=== PATIENT | female | born 1990 | race American Indian/Alaskan Native ===

== ENCOUNTER 2017-02-13 21:34 | Emergency (ER) | payer MEDICAID ==
[2017-02-13 22:46] VITALS: BP 112/72
[2017-02-14 00:51] LABS: Bilirubin,Urine NEG (Negative); Blood,Urine NEG (Negative); Ketones,Urine NEG (Negative); Leukocyte Esterase,Urine SM (Negative); Mucus,Urine FEW /HPF; Nitrite,Urine NEG (Negative); Protein,Urine <15 mg/dL mg/dL (Negative); Urobilinogen,Urine < 2.0 mg/dL (<2.0)
== END 2017-02-14 04:00 | disposition left against medical advice (07) ==
LOC: ED 21:34
DX: N89.8 Other specified noninflammatory disorders of vagina (principal); Z53.21 Procedure and treatment not carried out due to patient leaving prior to being seen by health care provider
CPT/HCPCS: 81001; 81025

== ENCOUNTER 2019-04-16 07:09 | Emergency (ER) | payer MEDICAID, OTHER ==
[2019-04-16 07:26] VITALS: BP 117/70
--- NOTE | 2019-04-16 09:11 | XRay Report ---
LUMBOSACRAL SPINE, 3 VIEWS INDICATION: low back pain. COMPARISON: None. IMPRESSION: Normal alignment. No significant discogenic DJD or facet arthropathy. No acute osseous or soft tissue abnormality. Signer Name: Grabiel Christianson Jr, MD Signed: 04/16/2019 9:06 AM Workstation Name: [id number]
[2019-04-16] MEDS ORDERED: ULTRAM PO ONE (09:27)
[2019-04-16] MEDS ORDERED: IBUPROFEN PO ONE (09:27)
[2019-04-16] MEDS ORDERED: DELTASONE PO ONE (09:28)
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
== END 2019-04-16 10:15 | disposition home or self-care (01) ==
LOC: ED 07:09
DX: S30.0XXA Contusion of lower back and pelvis, initial encounter (principal); X58.XXXA Exposure to other specified factors, initial encounter; Y93.89 Activity, other specified; Y92.89 Other specified places as the place of occurrence of the external cause; Y99.8 Other external cause status
CPT/HCPCS: 72100; 99283; J7512

== ENCOUNTER 2019-04-21 06:55 | Emergency (ER) | payer OTHER ==
[2019-04-21 07:26] VITALS: BP 110/74
--- NOTE | 2019-04-21 08:23 | Emergency Department Report ---
ED Female HPI - General Chief complaint: Urogenital-Female Stated complaint: VAGINAL PAIN,DISCHARGE, HARD TO USE IT Time Seen by Provider: 04/21/19 08:06 Source: patient Mode of arrival: Ambulatory Limitations: No Limitations - History of Present Illness Initial comments: This is a 29-year-old -[place] female who presents to the emergency room with vaginal irritation, pruritus, dysuria, and vaginal discharge for one week. Last menstrual period 03/22/2019, A1 . Patient denies trying anything over the counter. She reports some urinary frequency that is intermittent. She denies back pain, fever, chills, nausea, or vomiting. MD Complaint: vaginal discharge, pelvic pain, possible STD Onset/Timin -: week(s) Location: labia, suprapubic Radiation: non-radiating Severity: moderate Severity scale (0 -10): 5 Quality: cramping Consistency: intermittent Improves with: none Worsens with: urination Are you Now?: No Last Menstrual Period: 03/22/19 EDC: 12/27/19 Associated Symptoms: vaginal discharge, abdominal pain, dysuria. denies: nausea/vomiting, fever/chills, hematuria, rash, seizure - Related Data Sexually active: Yes : 2 Para: 1 A: 1 () Previous Rx's Medication Instructions Recorded Last Taken Type Ibuprofen [Motrin] 800 mg PO Q8HR PRN #30 tablet 04/16/19 Unknown Rx predniSONE [Deltasone] 20 mg PO DAILY #5 tablet 04/16/19 Unknown Rx Fluconazole [Diflucan TAB] 150 mg PO ONCE #1 tablet 04/21/19 Unknown Rx metroNIDAZOLE [Flagyl TAB] 500 mg PO Q12HR #14 tab 04/21/19 Unknown Rx Allergies Allergy/AdvReac Type Severity Reaction Status Date / Time No Known Allergies Allergy Unverified 08/15/14 16:54 ED Review of Systems ROS: Stated complaint: VAGINAL PAIN,DISCHARGE, HARD TO USE IT Other details as noted in HPI Constitutional: denies: chills, fever Respiratory: denies: cough, shortness of breath, wheezing Cardiovascular: denies: chest pain, palpitations Gastrointestinal: abdominal pain. denies: nausea, diarrhea Genitourinary: dysuria, frequency, discharge. denies: urgency Musculoskeletal: denies: back pain, joint swelling, arthralgia Skin: denies: rash, lesions Neurological: denies: headache, weakness, paresthesias Psychiatric: denies: anxiety, depression ED Past Medical Hx - Past Medical History Previous Medical History?: No - Surgical History Past Surgical History?: No - Social History Smoking Status: Never Smoker Substance Use Type: None - Medications Home Medications: Home Medications Medication Instructions Recorded Confirmed Last Taken Type Ibuprofen [Motrin] 800 mg PO Q8HR PRN #30 tablet 04/16/19 Unknown Rx predniSONE [Deltasone] 20 mg PO DAILY #5 tablet 04/16/19 Unknown Rx Fluconazole [Diflucan TAB] 150 mg PO ONCE #1 tablet 04/21/19 Unknown Rx metroNIDAZOLE [Flagyl TAB] 500 mg PO Q12HR #14 tab 04/21/19 Unknown Rx ED Physical Exam - General Limitations: No Limitations General appearance: alert, in no apparent distress, obese - Respiratory Respiratory exam: Present: normal lung sounds bilaterally. Absent: respiratory distress - Cardiovascular Cardiovascular Exam: Present: regular rate, normal rhythm. Absent: systolic murmur, diastolic murmur, rubs, gallop - GI/Abdominal GI/Abdominal exam: Present: soft, normal bowel sounds. Absent: distended, tenderness, guarding, rebound, rigid - External exam: Present: normal external exam Speculum exam: Present: vaginal discharge (malodorous yellowish). Absent: c ervical discharge, vaginal bleeding, foreign body, tissue, laceration Bi-manual exam: Present: normal bi-manual exam - Back Exam Back exam: Absent: CVA tenderness (R), CVA tenderness (L) - Neurological Exam Neurological exam: Present: alert, oriented X3 - Psychiatric Psychiatric exam: Present: normal affect, normal mood - Skin Skin exam: Present: warm, dry, intact, normal color. Absent: rash ED Course Vital Signs 04/21/19 07:24 Temperature 98.4 F Pulse Rate 83 Respiratory 16 Rate Blood Pressure 110/74 O2 Sat by Pulse 99 Oximetry ED Medical Decision Making - Medical Decision Making Patient was examined by me. Vitals are stable and in no acute distress. Obtained urinalysis, urine test, wet prep, gonorrhea and chlamydia. Pelvic exam performed. Wet prep positive for clue cells, negative Trichomonas and yeast. All other Labs unremarkable. Gonorrhea and chlamydia pending. St art metronidazole and diflucan for acute Cervicitis. Discharged home in stable condition. Discussed prevention options. F/U with PCP or Health Department. Critical care attestation.: If time is entered above; I have spent that time in minutes in the direct care of this critically ill patient, excluding procedure time. ED Disposition Clinical Impression: Vaginal discharge, Bacterial vaginitis, Acute cervicitis Disposition: TO HOME OR SELFCARE Is pt being admited?: No Condition: Stable Instructions: Bacterial Vaginosis (ED), Cervicitis (ED) Additional Instructions: Avoid drinking alcohol while taking antibiotics and for 24 hours after completion. Continue safe sexual intercourse. Follow up with Primary Care Provider or health department. Prescriptions: Fluconazole [Diflucan TAB] 150 mg PO ONCE #1 tablet metroNIDAZOLE [Flagyl TAB] 500 mg PO Q12HR #14 tab Referrals: [facility] [Outside] - 3-5 Days [facility] [Outside] - 3-5 Days [facility] [Outside] - 3-5 Days Forms: STI Treatment and Prevention Time of Disposition: 10:11
[2019-04-21 08:33] LABS: HCG Qualitative,Urine Negative (Negative)
[2019-04-21 08:39] LABS: Bacteria,Urine 1+ /HPF (Negative); Bilirubin,Urine NEG (Negative); Blood,Urine NEG (Negative); Color,Urine Yellow (Yellow); Mucus,Urine FEW /HPF; Protein,Urine <15 mg/dL mg/dL (Negative); Urobilinogen,Urine < 2.0 mg/dL (<2.0)
== END 2019-04-21 10:20 | disposition home or self-care (01) ==
LOC: ED 06:55
DX: N76.0 Acute vaginitis (principal); N72 Inflammatory disease of cervix uteri; Z79.899 Other long term (current) drug therapy
CPT/HCPCS: 81001; 81025; 87210; 87591

== ENCOUNTER 2020-03-25 02:32 | Emergency (ER) | payer OTHER, MEDICAID ==
[2020-03-25] MEDS ORDERED: MORPHINE 4 MG/1 ML INJ IV ONE (04:28)
[2020-03-25] MEDS ORDERED: ONDANSETRON 4 MG/2 ML INJ IV ONE (04:28)
[2020-03-25] MEDS ORDERED: DIPHtheria,PERTUSSIS(ACELL),TETANUS VACCINE/PF 0.5 ML VIAL IM ONE (04:30)
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
[2020-03-25 05:02] LABS: Basophils % (Auto) 0.4 % (0.0-1.8); Eosinophils # (Auto) 0.2 K/mm3 (0.0-0.4); Eosinophils % (Auto) 2.5 % (0.0-4.3); Hematocrit 41.1 % (30.3-42.9); Hemoglobin 13.8 gm/dl (10.1-14.3); Lymphocytes # (Auto) 1.8 K/mm3 (1.2-5.4); Lymphocytes % (Auto) 23.1 % (13.4-35.0); Mean Corpuscular HGB Conc 34 % (30-34); Mean Corpuscular Volume 84 fl (79-97); Monocytes # (Auto) 0.6 K/mm3 (0.0-0.8); Monocytes % (Auto) 8.1 % (0.0-7.3); Platelet Count 331 K/mm3 (140-440); Red Blood Count 4.88 M/mm3 (3.65-5.03); Red Cell Distribution Width 13.5 % (13.2-15.2)
[2020-03-25 05:13] LABS: Alanine Aminotransferase 13 units/L (7-56); Albumin 4.7 g/dL (3.9-5); BUN/Creatinine Ratio 11; Blood Urea Nitrogen 9 mg/dL (7-17); Calcium 10.1 mg/dL (8.4-10.2); Hemolysis Index 5
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
[2020-03-25 08:38] VITALS: BP 123/78
== END 2020-03-25 08:41 | disposition home or self-care (01) ==
LOC: ED 02:32
DX: S09.90XA Unspecified injury of head, initial encounter (principal); S16.1XXA Strain of muscle, fascia and tendon at neck level, initial encounter; M23.91 Unspecified internal derangement of right knee; Z79.1 Long term (current) use of non-steroidal anti-inflammatories (NSAID); Z79.899 Other long term (current) drug therapy; V89.2XXA Person injured in unspecified motor-vehicle accident, traffic, initial encounter; Y93.89 Activity, other specified; Y92.410 Unspecified street and highway as the place of occurrence of the external cause; Y99.8 Other external cause status
CPT/HCPCS: 29505; 36415; 70450; 72125; 73562; 80053; 83690; 84703; 85025; 90471; 90715; 96374; 96375; 99284; J2270; J2405

== ENCOUNTER 2021-10-02 18:54 | Emergency (ER) | payer MEDICAID ==
[2021-10-02] MEDS ORDERED: IBUPROFEN 600 MG TAB PO ONE (20:57)
[2021-10-02] MEDS ORDERED: oxyCODONE /ACETAMINOPHEN 5-325MG TAB PO ONE (20:57)
[2021-10-02] MEDS ORDERED: ONDANSETRON 4 MG ODT TAB PO ONE (20:57)
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
--- NOTE | 2021-10-02 21:47 | Emergency Department Report ---
ED Lower Extremity HPI - General Chief Complaint: Extremity Injury, Lower Stated Complaint: BROKEN TOE Source: patient Mode of arrival: Ambulatory Limitations: No Limitations - History of Present Illness Initial Comments: Patient is a 31-year-old -[place] female with no past medical history presents to the ED with complaint of acute onset persistent left great toe and l eft foot pain after she accidentally bumped her left great toe and foot while walking on the street and the when a stray dog scared her about 2 days ago. Patient states that she was initially evaluated at an urgent care clinic where she was diagnosed with nondisplaced left great toe fracture. Patient states that they placed metallic spica splint on her left great toe which helped with pain control but which came loose and fell out. Patient states that in the last 12 hours the pain has worsened such that she is unable to walk because of worsening pain of the left great toe and left foot. Patient denies dizziness, syncope, head or neck injuries, back pain, knee pain, ankle pain, hip pain, nausea and vomiting, numbness and tingling or weakness of left leg. MD Complaint: foot injury (left foot pain, left great toe pain) -: Sudden, days(s) (2) Injury: Foot: Left (left foot pain), Toes: Left (left great toe pain) Type of Injury: blunt (stumped the foot against a rock) Place: street/outdoors Severity: severe Severity scale (0 -10): 8 Improves With: nothing Worsens With: weight bearing, movement, palpation Context: direct blow Associated Symptoms: swelling, able to partially bear weight. denies: snap/pop sensation, numbness, tingling, unable to bear weight - Related Data Previous Rx's Medication Instructions Recorded Last Taken Type Ibuprofen [Motrin] 800 mg PO Q8HR PRN #30 tablet 04/16/19 Unknown Rx predniSONE [Deltasone] 20 mg PO DAILY #5 tablet 04/16/19 Unknown Rx Fluconazole (Nf) [Diflucan TAB] 150 mg PO ONCE #1 tablet 04/21/19 Unknown Rx metroNIDAZOLE [Flagyl TAB] 500 mg PO Q12HR #14 tab 04/21/19 Unknown Rx Ibuprofen [Motrin 600 MG tab] 600 mg PO Q8H PRN #20 tablet 03/25/20 Unknown Rx methOCARBAMOL [Robaxin TAB] 500 mg PO Q6H PRN #14 tablet 03/25/20 Unknown Rx oxyCODONE /ACETAMINOPHEN [Percocet 1 tab PO Q6HR PRN #10 tablet 03/25/20 Unknown Rx 5/325] Acetaminophen/Codeine [Tylenol 1 tab PO Q6H PRN #12 tab 10/02/21 Unknown Rx /Codeine # 3 tab] Ibuprofen [Motrin] 800 mg PO Q8HR PRN #30 tablet 10/02/21 Unknown Rx Allergies Allergy/AdvReac Type Severity Reaction Status Date / Time No Known Allergies Allergy Verified 10/02/21 19:58 ED Review of Systems ROS: Stated complaint: BROKEN TOE Other details as noted in HPI Constitutional: denies: chills, fever Eyes: denies: eye pain, eye discharge, vision change ENT: denies: ear pain, throat pain Respiratory: denies: cough, shortness of breath, wheezing Cardiovascular: denies: chest pain, palpitations Endocrine: no symptoms reported Gastrointestinal: denies: abdominal pain, nausea, diarrhea Genitourinary: denies: urgency, dysuria, discharge Musculoskeletal: joint swelling (left great toe swelling ), arthralgia (left great toe and foot pain). denies: back pain Skin: denies: rash, lesions Neurological: denies: headache, weakness, paresthesias Psychiatric: denies: anxiety, depression Hematological/Lymphatic: denies: easy bleeding, easy bruising ED Past Medical Hx - Past Medical History Previous Medical History?: No - Surgical History Past Surgical History?: No - Social History Smoking Status: Never Smoker Substance Use Type: None - Medications Home Medications: Home Medications Medication Instructions Recorded Confirmed Last Taken Type Ibuprofen [Motrin] 800 mg PO Q8HR PRN #30 tablet 04/16/19 Unknown Rx predniSONE [Deltasone] 20 mg PO DAILY #5 tablet 04/16/19 Unknown Rx Fluconazole (Nf) [Diflucan TAB] 150 mg PO ONCE #1 tablet 04/21/19 Unknown Rx metroNIDAZOLE [Flagyl TAB] 500 mg PO Q12HR #14 tab 04/21/19 Unknown Rx Ibuprofen [Motrin 600 MG tab] 600 mg PO Q8H PRN #20 tablet 03/25/20 Unknown Rx methOCARBAMOL [Robaxin TAB] 500 mg PO Q6H PRN #14 tablet 03/25/20 Unknown Rx oxyCODONE /ACETAMINOPHEN [Percocet 1 tab PO Q6HR PRN #10 tablet 03/25/20 Unknown Rx 5/325] Acetaminophen/Codeine [Tylenol 1 tab PO Q6H PRN #12 tab 10/02/21 Unknown Rx /Codeine # 3 tab] Ibuprofen [Motrin] 800 mg PO Q8HR PRN #30 tablet 10/02/21 Unknown Rx ED Physical Exam - General Limitations: No Limitations General appearance: alert, in no apparent distress - Head Head exam: Present: atraumatic, normocephalic, normal inspection - Eye Eye exam: Present: normal appearance, PERRL, EOMI Pupils: Present: normal accommodation - ENT ENT exam: Present: normal exam, normal orophraynx, mucous membranes moist, TM's normal bilaterally, normal external ear exam - Neck Neck exam: Present: normal inspection, full ROM. Absent: tenderness - Respiratory Respiratory exam: Present: normal lung sounds bilaterally. Absent: respiratory distress, wheezes, rales, rhonchi, chest wall tenderness, accessory muscle use, decreased breath sounds, prolonged expiratory - Cardiovascular Cardiovascular Exam: Present: regular rate, normal rhythm, normal heart sounds. Absent: systolic murmur, diastolic murmur, rubs, gallop - GI/Abdominal GI/Abdominal exam: Present: soft, normal bowel sounds. Absent: tenderness, guarding, rebound, hyperactive bowel sounds, hypoactive bowel sounds, organomegaly - Extremities Exam Extremities exam: Present: normal inspection, tenderness (Palpable left foot and left great toe tenderness with limited range of motion due to pain), normal capillary refill, joint swelling (Distal left great toe tenderness and swelling). Absent: full ROM (Limited range of motion of left great toe due to pain), calf tenderness - Back Exam Back exam: Present: normal inspection, full ROM. Absent: tenderness, CVA tenderness (R), CVA tenderness (L), muscle spasm, paraspinal tenderness - Neurological Exam Neurological exam: Present: alert, oriented X3, CN II-XII intact, normal gait, reflexes normal - Psychiatric Psychiatric exam: Present: normal affect, normal mood - Skin Skin exam: Present: warm, dry, intact, normal color. Absent: rash ED Course Vital Signs 10/02/21 10/02/21 10/02/21 19:51 21:25 22:23 Temperature 98.6 F Pulse Rate 78 76 Respiratory 16 16 14 Rate Blood Pressure 141/78 146/80 [Right] O2 Sat by Pulse 99 100 Oximetry ED Lower Extremity MDM - Radiology Data Radiology results: report reviewed, image reviewed [facility] [address] [place] [address] XRay Report Signed Patient: MANUELA MCLAUGHLIN MR#: [id number] : 1990 Acct:[id number] Age/Sex: 31 / F ADM Date: 10/02/21 Loc: ED Attending Dr: Ordering Physician: LORI GREENE Date of Service: 10/02/21 Procedure(s): XR foot 3+V LT Accession Number(s): [id number] cc: LORI GREENE Fluoro Time In Minutes: XR foot 3+V LT INDICATION / CLINICAL INFORMATION: pain - left great toe injury COMPARISON: None available. FINDINGS: BONES / JOINT(S): No acute fracture or subluxation. Lisfranc interval is maintained. No significant arthritis. SOFT TISSUES: No significant abnormality. ADDITIONAL FINDINGS: None. IMPRESSION: No acute osseous findings of the left foot. Signer Name: Sacha Clark MD Signed: 10/02/2021 9:27 PM Workstation Name: [id number] Transcribed By: JS Dictated By: SACHA CLARK MD Electronically Authenticated By: SACHA CLARK MD Signed Date/Time: 10/02/212126 DD/ 25 TD/TT: - Medical Decision Making This is a 31-year-old -[place] female with no past medical history presents to the ED with complaint of acute onset persistent left great toe and left foot pain after she accidentally bumped her left great toe and foot while walking on the street and the when a stray dog scared her about 2 days ago. Patient states that she was initially evaluated at an urgent care clinic where she was diagnosed with nondisplaced left great toe fracture. Patient states that they placed metallic spica splint on her left great toe which helped with pain control but which came loose and fell out. Patient states that in the last 12 hours the pain has worsened such that she is unable to walk because of worsening pain of the left great toe and left foot. In the ED, patient is alert and oriented x3 and is not in any distress. Patient was treated for pain in the ED and left foot x-ray showed no acute fractures or subluxations. The left great toe was raquel taped with a second toe and the patient's left foot fitted with a postop shoe. Patient was discharged home on pain medications and advised to follow-up with her primary care physician in 5 to 7 days for reevaluation or return to the ED immediately if symptoms get worse. - Differential Diagnosis Great toe fracture; great toe sprain; foot contusion; foot sprain Critical care attestation.: If time is entered above; I have spent that time in minutes in the direct care of this critically ill patient, excluding procedure time. ED Disposition Clinical Impression: Contusion of left great toe without damage to nail, initial encounter Sprain of left foot Qualifiers: Encounter type: initial encounter Qualified Code(s): S93.602A - Unspecified sprain of left foot, initial encounter Sprain of left great toe Qualifiers: Encounter type: initial encounter Qualified Code(s): S93.502A - Unspecified sprain of left great toe, initial encounter Disposition: 01 HOME / SELF CARE / HOMELESS Is pt being admited?: No Does the pt Need Aspirin: No Condition: Stable Instructions: Turf Toe, Foot Sprain Additional Instructions: The left foot x-ray showed no acute fractures or subluxations. Therefore take medications with food, drink plenty of fluids and follow-up with your primary care physician or the orthopedic surgeon Dr. Lau for further evaluation. Contact his office on the first thing on Sunday, October 03 2021 to schedule a follow-up appointment. Return to the ED immediately if symptoms get worse. Prescriptions: Ibuprofen [Motrin] 800 mg PO Q8HR PRN #30 tablet PRN Reason: Pain , Severe (7-10) Acetaminophen/Codeine [Tylenol /Codeine # 3 tab] 1 tab PO Q6H PRN #12 tab PRN Reason: Pain , Severe (7-10) Referrals: GRACE LAU MD [Staff Physician] - 3-5 Days Forms: Work/School Release Form(ED) Time of Disposition: 21:46 Print Language: MOZAMBICAN
[2021-10-02 22:24] VITALS: BP 146/80
== END 2021-10-02 23:25 | disposition home or self-care (01) ==
LOC: ED 18:54
DX: S90.112A Contusion of left great toe without damage to nail, initial encounter (principal); S93.602A Unspecified sprain of left foot, initial encounter; X58.XXXA Exposure to other specified factors, initial encounter; Y93.89 Activity, other specified; Y92.89 Other specified places as the place of occurrence of the external cause; Y99.8 Other external cause status
CPT/HCPCS: 99283; J3490; Q0162